=== PATIENT | male | born 1940 | race Caucasian/White ===

== ENCOUNTER 2018-04-24 08:17 | Inpatient (IN) | payer MEDICARE, OTHER ==
[~2018-04-24] VITALS: Ht 182.9 cm; Wt 115.1 kg
[~2018-04-24 08:17] MED LIST: ALDACTONE50 MG PO; CO Q-1050 MG PO; COD LIVER OIL1 CAP PO; CORDARONE200 MG/TAB PO; CRESTOR20 MG PO; CYANOCOBAL1000 MCG/2 IM; ELIQUIS 5MG PO; FLEXERIL 1010 MG/TAB PO; HYZAAR 12.5 MG-1 TAB PO; IRON325 MG PO; LANTUS SOLOS100 U/ML SC; LASIX 20MG TABL20 MG PO; LIPITOR 40MG TA40 MG PO; LIQUID MAGNESI400 MG PO; MULTAQ400 MG PO; NITROSTAT0.4 MG/TAB SL; NOVLOG SC; PROSCAR 5MG5 MG PO; PROZAC 20MG20 MG PO; RESTORIL 1515 MG/CAP PO; TOPROL XL 25MG25 MG PO; TOPROL XL100 MG PO; VITAMIN D31000 I1 PO; XANAX .25M0.25 MG/TA PO; ZOCOR 40MG40 MG PO
[2018-04-24 08:43] VITALS: BP 151/71; PULSE 74; TEMP 98.7
[2018-04-24 09:18] LABS: HEMATOCRIT 37.1 % (42.0-52.0); HEMOGLOBIN 11.6 g/dl (13.5-18.0); MEAN CELL VOLUME 81 fl (80.0-100.0); MEAN CORPUSCULAR HEMOGLOBIN 25 pg (27.0-31.0); MEAN CORPUSCULAR HGB CONC 31 g/dl (33.0-37.0); MEAN PLATELET VOLUME 10.8 fl (7.4-10.4); PLATELET COUNT 193 K/mm3 (130-400); RED BLOOD COUNT 4.57 M/mm3 (4.20-5.60)
[2018-04-24 09:31] LABS: ALBUMIN 3.8 gm/dL (3.5-5.0); BILIRUBIN,TOTAL 0.4 mg/dL (0.0-1.0); CALCIUM 9.1 mg/dL (8.4-10.2); CREATININE, serum 2.45 mg/dL (0.66-1.25); MAGNESIUM 2.3 mg/dL (1.6-2.3); POTASSIUM 4.3 mmol/L (3.4-5.0); TOTAL PROTEIN 6.9 gm/dL (6.4-8.2)
[2018-04-24 10:16] LABS: INR 1.7 (0.8-3.0); PROTHROMBIN TIME 18.8 SECONDS (9.7-12.8)
[2018-04-24 11:06] VITALS: BP 118/72; PULSE 69; TEMP 98.2
[2018-04-24] MEDS ORDERED: LASIX 20MG TABL20 MG PO (12:32)
[2018-04-24] MEDS ORDERED: ALDACTONE 25MG25 M1 PO (12:33)
[2018-04-24] MEDS ORDERED: COLCRYS0.6 MG PO (12:35)
[2018-04-24] MEDS ORDERED: CALCITRIOL PO (12:37)
[2018-04-24] MEDS ORDERED: ATROVENTNS0.03% NS (12:38)
[2018-04-24] MEDS ORDERED: ZYLOPRIM 100MG100 MG PO (12:40)
[2018-04-24 14:57] VITALS: BP 110/66; PULSE 78; TEMP 97.8
[2018-04-24 20:58] VITALS: BP 120/79; PULSE 71; TEMP 98
[2018-04-25 00:12] VITALS: BP 97/54; PULSE 72; TEMP 97.6
[2018-04-25 03:23] VITALS: BP 126/76; PULSE 76; TEMP 98
[2018-04-25 08:02] LABS: INR 1.3 (0.8-3.0); PROTHROMBIN TIME 14.9 SECONDS (9.7-12.8)
[2018-04-25 08:12] VITALS: BP 107/64; PULSE 83; TEMP 98.1
[2018-04-25 08:14] LABS: CALCIUM 9.1 mg/dL (8.4-10.2); CREATININE, serum 2.16 mg/dL (0.66-1.25)
[2018-04-25 12:08] VITALS: BP 118/70; PULSE 76; TEMP 98.2
[2018-04-25 16:33] VITALS: BP 109/61; PULSE 70; TEMP 98.1
[2018-04-25 19:10] VITALS: BP 122/73; PULSE 78; TEMP 97.9
[2018-04-26 00:03] VITALS: BP 118/63; PULSE 70; TEMP 97.8
[2018-04-26 03:25] VITALS: BP 115/72; PULSE 74; TEMP 98.1
[2018-04-26 07:43] LABS: CALCIUM 9.1 mg/dL (8.4-10.2); CREATININE, serum 2.02 mg/dL (0.66-1.25); INR 1.4 (0.8-3.0); POTASSIUM 4.7 mmol/L (3.4-5.0); PROTHROMBIN TIME 15.4 SECONDS (9.7-12.8)
[2018-04-26 08:50] VITALS: BP 102/66; PULSE 70; TEMP 97.9
[2018-04-26 11:02] VITALS: BP 126/74; PULSE 80; TEMP 97.7
[2018-04-26] MEDS ORDERED: BETAPACE 120MG120 MG PO (11:15)
[2018-04-26 13:30] LABS: COLLECTION METHOD CLEAN CATCH
[2018-04-26 13:38] LABS: MUCOUS Present /lpf; PH 5 (5-8); SQUAMOUS EPITHELIAL None Seen /hpf; URINE APPEARANCE Clear; URINE BACTERIA Rare /hpf; URINE BILIRUBIN Negative (NEGATIVE); URINE BLOOD Negative (NEGATIVE); URINE COLOR Yellow; URINE GLUCOSE Negative (NEGATIVE); URINE KETONE Negative (NEGATIVE); URINE LEUKOCYTE ESTERASE Negative (NEGATIVE); URINE NITRATE Negative (NEGATIVE); URINE PROTEIN(semi-quant) 2+ (NEGATIVE); URINE RBC 0-2 /hpf; URINE UROBILINOGEN Negative (NEGATIVE); URINE WBC 0-2 /hpf
[2018-04-26 13:50] LABS: URINE PROTEIN:CREAT RATIO 0.64 (0.00-0.14)
== END 2018-04-26 13:45 | disposition home or self-care (01) | DRG 309 ==
LOC: MEDICAL 08:17
PROVIDERS: Internal Medicine Cardiovascular Disease; Internal Medicine Nephrology
DX: I48.92 Unspecified atrial flutter (principal); N18.4 Chronic kidney disease, stage 4 (severe); N25.81 Secondary hyperparathyroidism of renal origin; I12.9 Hypertensive chronic kidney disease with stage 1 through stage 4 chronic kidney disease, or unspecified chronic kidney disease; I25.10 Atherosclerotic heart disease of native coronary artery without angina pectoris; E11.22 Type 2 diabetes mellitus with diabetic chronic kidney disease; I48.0 Paroxysmal atrial fibrillation; Z95.0 Presence of cardiac pacemaker; Z95.5 Presence of coronary angioplasty implant and graft; Z87.891 Personal history of nicotine dependence
CPT/HCPCS: J1815

== ENCOUNTER 2020-01-29 22:35 | Inpatient (IN) | payer MEDICARE, BC, OTHER ==
[~2020-01-29] VITALS: Ht 182.9 cm; Wt 107.5 kg
[~2020-01-29 22:35] MED LIST changes: +ALDACTONE 25MG25 M1 PO; +ATROVENTNS0.03% NS; +BETAPACE 120MG120 MG PO; +CALCITRIOL PO; +COLCRYS0.6 MG PO; -RESTORIL 1515 MG/CAP PO; +ZYLOPRIM 100MG100 MG PO
--- NOTE | 2020-01-29 23:00 | NUR ---
Direct admit from home to room 318 via wheelchair. Oriented to room and policy. Admission assessment complete. Dr Acosta notified of arrival. Discussed plan of care to include starting IV and medical technician assistant. Denies questions/concerns. IV placed to right [id number] attempts. Tolerated well. Call light in reach. Will monitor.
[2020-01-29] MEDS ORDERED: NITROSTAT0.4 MG/TAB SL (23:05)
[2020-01-29] MEDS ORDERED: CORDARONE200 MG/TAB PO (23:08)
[2020-01-29] MEDS ORDERED: SYNTHROID0.075 MG/T PO (23:10)
[2020-01-29] MEDS ORDERED: ULORIC40 MG PO (23:11)
[2020-01-29] MEDS ORDERED: RESTORIL 1515 MG/CAP PO (23:24)
[2020-01-29 23:26] VITALS: BP 114/51; PULSE 72; TEMP 98.6
[2020-01-29] MEDS ORDERED: ATIVAN 0.50.5 MG/TAB (23:26)
[2020-01-30 04:13] VITALS: BP 91/35; PULSE 78; TEMP 97.9
[2020-01-30 06:35] LABS: MEAN CELL VOLUME 75 fl (80.0-100.0); MEAN CORPUSCULAR HGB CONC 27 g/dl (33.0-37.0); MEAN PLATELET VOLUME 10.8 fl (7.4-10.4); PLATELET COUNT 240 K/mm3 (130-400); REDCELL DISTRIBUTION WIDTH-CV 20.7 % (11.5-14.5)
[2020-01-30 06:42] LABS: INR 2.6 (0.8-3.0); PROTHROMBIN TIME 31.6 SECONDS (9.7-12.8)
[2020-01-30 06:43] LABS: ALBUMIN 3.3 gm/dL (3.5-5.0); CALCIUM 8.4 mg/dL (8.4-10.2); CREATININE, serum 2.83 (0.66-1.25); PHOSPHOROUS 4.5 mg/dL (2.5-4.5); POTASSIUM 3.9 mmol/L (3.4-5.0)
[2020-01-30 06:45] LABS: PARTIAL THROMBOPLASTIN TIME 37.8 SECONDS (26.0-37.0)
[2020-01-30 07:00] LABS: HEMATOCRIT 24.1 % (42.0-52.0); MEAN CORPUSCULAR HEMOGLOBIN 20 pg (27.0-31.0)
[2020-01-30 07:03] LABS: HEMOGLOBIN 6.4 g/dl (13.5-18.0)
--- NOTE | 2020-01-30 07:07 | NUR ---
Dr. Acosta notified of critical lab. No new orders received.
[2020-01-30 07:47] LABS: BAND 2 % (0-10); BASOPHIL 1 % (0-2); HYPOCHROMIA 3+; LYMPHOCYTE 22 % (20.0-51.0); NEUTROPHILS 70 % (42.0-75.2); OVALOCYTES 2+; PLATELET ESTIMATE NORMAL (NORMAL); SCHISTOCYTES 1+
[2020-01-30 07:54] VITALS: BP 106/46; PULSE 70; TEMP 97.6
[2020-01-30 10:36] LABS: IRON,SERUM 189 ug/dL (35-150)
[2020-01-30 10:45] LABS: TOTAL IRON BINDING CAPACITY 388 ug/dL (261-462)
--- NOTE | 2020-01-30 10:54 | NUR ---
Patient alert and oriented, answers questions appropriately. See assessment. Abdomen soft, non tender, non distended. Bowel sounds active x4 quads. +Flatus. Denies noticable blood in stool or urine. States stool is normal color. No c/o at this time.
--- NOTE | 2020-01-30 11:25 | NUR ---
Behavioral Health Director met with patient to discuss discharge planning. Patient lives in [place] with his , Adeline (ph#[phone]) and sees Dr. Salazar for primary care. Patient obtains medications from either [facility] in [place] or has them mailed to him by the [place]. Patient reports independence with ADLS and uses a CPAP at home. Patient does not have home oxygen set up but is currently requiring 2 liters of oxygen. SW will continue to monitor. Patient states his DPOA is his daughter, Pamela Redman. Josiah did not have Pamela's phone number. Patient plans to return home upon discharge. LIANG spoke with Dr. Acosta about ordering PT/OT. SW to continue to follow.
[2020-01-30 11:55] VITALS: BP 112/52; PULSE 71; TEMP 98.4
[2020-01-30 16:15] VITALS: BP 100/43; PULSE 70; TEMP 97.7
[2020-01-30 20:53] VITALS: BP 96/46; PULSE 72; TEMP 98.3
--- NOTE | 2020-01-30 22:00 | NUR ---
PT RESTING IN BED. PT CONTINUES ATTEMPTING TO DRINK BOWEL PREP WITH MUCH COAXING. BM'S ARE LIGHT GREEN WITH THICK FLECKS. CONTINUE TO URGE. O2 2L NC. DYSPNEIC W/ EXERTION. PT DENIES PAIN JUST VERY TIRED.
--- NOTE | 2020-01-30 23:50 | NUR ---
PATIENT CHOOSES TO NOT USE OUR PAP DEVICE FOR TONIGHT.
[2020-01-31] VITALS (19 sets, daily range): BP systolic 104–159; BP diastolic 36–63; PULSE 68–81; TEMP 97.4–98.4
--- NOTE | 2020-01-31 06:32 | NUR ---
BM CLEAR PER PT- PT FLUSHED TOILET.
--- NOTE | 2020-01-31 06:33 | NUR ---
SPOT ACCUCHECK 94 AT THIS TIME.
[2020-01-31 06:38] LABS: BASO % 0.8 % (0.0-2.0); EOS # 0.1 (0.0-0.7); EOS % 1.5 % (0-4.0); GRAN # 3.6 (1.4-6.5); GRAN % 75.2 % (42.2-75.2); LYMPH # 0.6 (1.2-3.4); LYMPH % 12.3 % (20.0-51.0); MEAN CELL VOLUME 75 fl (80.0-100.0); MEAN CORPUSCULAR HGB CONC 27 g/dl (33.0-37.0); MEAN PLATELET VOLUME 10.6 fl (7.4-10.4); MONO # 0.5 (0.1-0.6); PLATELET COUNT 222 K/mm3 (130-400); RED BLOOD COUNT 3.34 M/mm3 (4.20-5.60); REDCELL DISTRIBUTION WIDTH-CV 20.9 % (11.5-14.5)
[2020-01-31 06:40] LABS: ALBUMIN 3.4 gm/dL (3.5-5.0); CALCIUM 8.2 mg/dL (8.4-10.2); CREATININE, serum 2.4 (0.66-1.25); PHOSPHOROUS 4.3 mg/dL (2.5-4.5); POTASSIUM 4.1 mmol/L (3.4-5.0)
[2020-01-31 06:46] LABS: HEMOGLOBIN 6.8 g/dl (13.5-18.0); MEAN CORPUSCULAR HEMOGLOBIN 20 pg (27.0-31.0)
[2020-01-31 07:34] LABS: INR 1.9 (0.8-3.0); PROTHROMBIN TIME 22.1 SECONDS (9.7-12.8)
--- NOTE | 2020-01-31 09:08 | NUR ---
Assessment complete prior to EGD/Colonoscopy this morning. No complaints of pain or discomfort. IV site CD&I, procedure fluids started at 100 mls/hr. Pt was aware of his POC for today. Assessed as he walked from restroom back to bed and his gait was steady. Stated that felt okay this morning. No other needs were expressed at this time. Call light is in reach.
--- NOTE | 2020-01-31 09:44 | NUR ---
Pt has arrived back from EGD/Colonoscopy. no source of bleeding was found per op report. Stomach was irritated and inflamed. An H pylori test was done, results not back yet. No issues in abdomen other than diverticulosis but is not the cause of the bleeding. Blood in the stool may be from hemmoroids rather than the GI.
[2020-01-31] MEDS ORDERED: PROTONIX40 MG/Pack PO (11:40)
[2020-01-31] MEDS ORDERED: CORDARONE200 MG/TAB PO (11:43)
--- NOTE | 2020-01-31 12:30 | NUR ---
Blood transfusion began at this time. Pt is aware of process and is stable at this time.
--- NOTE | 2020-01-31 13:39 | NUR ---
PT ON 3 LPM @ REST IN BED. O2 TURNED OFF. SPO2 DROPPED WITHIN 2 MINUTES TO 85%. O2 BACK ON @ 3 LPM NC RETURNING PT TO SPO2 OF 94%. MUCKER OPERATOR NOTIFIED.
--- NOTE | 2020-01-31 14:22 | NUR ---
Pt is still stable. Tolerating transfusion very well. He is aware of his ischarge post infusion at this time.
--- NOTE | 2020-01-31 14:25 | NUR ---
infusion rate is currently runnning at 100 ml/hr. not to go higher at this time due to IV. It was leaking slightly with fluids but has not been leaking during infusion. Pt tolerating well.
--- NOTE | 2020-01-31 16:01 | NUR ---
Awnings Mechanic was notified that patient to discharge today. Patient still is requiring 3 liters of oxygen. Exercise Ox ordered and patient qualifies. LIANG met with patient who would like to use [facility] in [place]. SW faxed oxygen order, Facesheet, H&P, progress note, and RT assessment to [facility]. LIANG contacted patient's , Adeline who will pickle sorter oxygen tank from [facility] then come pickle sorter patient. No additional needs at this time.
--- NOTE | 2020-01-31 16:05 | NUR ---
Blood has finished infusing. Pt tolerated well, IV site held well throughout infusion. Pt ambulated to restroom while infusing and walked steady. He denies pain or discomfort. He did complain of some anxiety towards the end, PRN anxiety medication was provided.
--- NOTE | 2020-01-31 17:27 | NUR ---
Pt left the floor at this time. Discharge instructions were discussed, pt denied questions and is aware of his medications.
== END 2020-01-31 17:27 | disposition home or self-care (01) | DRG 378 ==
LOC: MEDICAL 22:35
PROVIDERS: Internal Medicine Gastroenterology; ADMIT Internal Medicine Nephrology
PROC: 0DB78ZX Excision of Stomach, Pylorus, Via Natural or Artificial Opening Endoscopic, Diagnostic (ICD-10-PCS; principal; 2020-01-31 08:00)
PROC: 0DJD8ZZ Inspection of Lower Intestinal Tract, Via Natural or Artificial Opening Endoscopic (ICD-10-PCS; 2020-01-31 08:00)
DX: K29.31 Chronic superficial gastritis with bleeding (principal); N18.4 Chronic kidney disease, stage 4 (severe); I48.92 Unspecified atrial flutter; D62 Acute posthemorrhagic anemia; E66.01 Morbid (severe) obesity due to excess calories; F41.9 Anxiety disorder, unspecified; K57.31 Diverticulosis of large intestine without perforation or abscess with bleeding; G47.33 Obstructive sleep apnea (adult) (pediatric); I12.9 Hypertensive chronic kidney disease with stage 1 through stage 4 chronic kidney disease, or unspecified chronic kidney disease; E11.22 Type 2 diabetes mellitus with diabetic chronic kidney disease; I48.0 Paroxysmal atrial fibrillation; D63.1 Anemia in chronic kidney disease; K64.1 Second degree hemorrhoids; I35.0 Nonrheumatic aortic (valve) stenosis; E78.5 Hyperlipidemia, unspecified; L40.9 Psoriasis, unspecified; E55.9 Vitamin D deficiency, unspecified; I27.20 Pulmonary hypertension, unspecified; G47.00 Insomnia, unspecified; I25.10 Atherosclerotic heart disease of native coronary artery without angina pectoris; Z95.0 Presence of cardiac pacemaker; Z79.4 Long term (current) use of insulin; Z90.3 Acquired absence of stomach [part of]; Z87.891 Personal history of nicotine dependence; Z88.8 Allergy status to other drugs, medicaments and biological substances
CPT/HCPCS: J1815; J2704; J2916; J3430; P9016

== ENCOUNTER 2020-04-02 08:39 | Outpatient (CLI) | payer MEDICARE, BC, OTHER ==
[~2020-04-02] VITALS: Ht 182.9 cm; Wt 108.0 kg
[2020-04-02] VITALS (8 sets, daily range): BP systolic 109–127; BP diastolic 61–76; PULSE 69–80; TEMP 98.1
[~2020-04-02 08:39] MED LIST changes: +ATIVAN 0.50.5 MG/TAB; +PROTONIX40 MG/Pack PO; +RESTORIL 1515 MG/CAP PO; +SYNTHROID0.075 MG/T PO; +ULORIC40 MG PO
[2020-04-02] MEDS ORDERED: PACERONE400 MG PO (09:24)
[2020-04-02] MEDS ORDERED: PROTONIX 40MG T40 MG PO (09:25)
[2020-04-02] MEDS ORDERED: LASIX 40MG TABL40 MG PO (09:25)
[2020-04-02 09:26] LABS: HEMATOCRIT 39.1 % (42.0-52.0); HEMOGLOBIN 11.3 g/dl (13.5-18.0); MEAN CELL VOLUME 85 fl (80.0-100.0); MEAN CORPUSCULAR HEMOGLOBIN 25 pg (27.0-31.0); MEAN CORPUSCULAR HGB CONC 29 g/dl (33.0-37.0); MEAN PLATELET VOLUME 10.1 fl (7.4-10.4); PLATELET COUNT 215 K/mm3 (130-400); RED BLOOD COUNT 4.61 M/mm3 (4.20-5.60); REDCELL DISTRIBUTION WIDTH-CV 25.1 % (11.5-14.5)
[2020-04-02] MEDS ORDERED: CALCITRIOL PO (09:27)
[2020-04-02] MEDS ORDERED: ATROVENTNS0.03% NS (09:31)
[2020-04-02] MEDS ORDERED: ASPIRIN E.C. 8181 MG PO (09:35)
[2020-04-02] MEDS ORDERED: ZAROXOLYN 2.52.5 MG PO (09:36)
[2020-04-02 09:39] LABS: CALCIUM 8.9 mg/dL (8.4-10.2); CREATININE, serum 2.44 (0.66-1.25); POTASSIUM 3.9 mmol/L (3.4-5.0)
[2020-04-02 09:41] LABS: INR 1.2 (0.8-3.0); PROTHROMBIN TIME 13.7 SECONDS (9.7-12.8)
--- NOTE | 2020-04-02 11:33 | NUR ---
GABI COMPLETED, REPORT FROM DENVER ORLANDO. PT RESTING AWAKE AND ALERT ON STRETCHER, BACK TO BEDSIDE. WCTM.
--- NOTE | 2020-04-02 11:34 | NUR ---
PT DOING WELL, HE HAS BEEN ABLE TO DRINK WITH NO PROBLEM. PT SATTING MID 90'S ON 2L/NC, PT ENCOURAGED TO WEAR HOME O2 DURING THE DAY PRESCRIBED. REPORTS HAS PORTABLE O2 IN THE CAR FOR PT'S RIDE HOME. PT'S DISCHARGE IS PENDING. DR. SANTIAGO STATED PLANNED TO SPEAK WITH PT AND BEFORE THEIR DEPARTURE.
--- NOTE | 2020-04-02 13:00 | NUR ---
Pt is ready for departure. he has been up and ambulatory in room with steady gait per his baseline. iv dc'd with cath intact, dressing applied. dc and f/u instructions were reviewed. no questions expressed. pt escorted to exit via wheelchair.
== END 2020-04-02 15:15 | disposition home or self-care (01) ==
LOC: COL.RAD 08:39
PROVIDERS: Internal Medicine Cardiovascular Disease
DX: I35.8 Other nonrheumatic aortic valve disorders (principal); Z95.0 Presence of cardiac pacemaker
CPT/HCPCS: J2704; J7030

== ENCOUNTER 2020-11-04 08:45 | Outpatient (CLI) | payer MEDICARE, OTHER, BC ==
[~2020-11-04] VITALS: Ht 182.9 cm; Wt 90.8 kg
[2020-11-04] VITALS (9 sets, daily range): BP systolic 93–112; BP diastolic 53–74; PULSE 69–71; TEMP 97.9
[~2020-11-04 08:45] MED LIST changes: +ASPIRIN E.C. 8181 MG PO; +LASIX 40MG TABL40 MG PO; +PACERONE400 MG PO; +PROTONIX 40MG T40 MG PO; +ZAROXOLYN 2.52.5 MG PO
[2020-11-04 10:44] LABS: CALCIUM 8.5 mg/dL (8.4-10.2); CREATININE, serum 3.04 (0.66-1.25); POTASSIUM 4.3 mmol/L (3.4-5.0)
[2020-11-04 10:46] LABS: MEAN CELL VOLUME 90 fl (80.0-100.0); MEAN CORPUSCULAR HEMOGLOBIN 28 pg (27.0-31.0); MEAN CORPUSCULAR HGB CONC 31 g/dl (33.0-37.0); MEAN PLATELET VOLUME 10.4 fl (7.4-10.4); PLATELET COUNT 220 K/mm3 (130-400); REDCELL DISTRIBUTION WIDTH-CV 15.6 % (11.5-14.5)
[2020-11-04 10:47] LABS: INR 1.2 (0.8-3.0); PROTHROMBIN TIME 13.5 SECONDS (9.7-12.8)
[2020-11-04 10:54] LABS: HEMATOCRIT 32.5 % (42.0-52.0)
--- NOTE | 2020-11-04 11:25 | NUR ---
BS REPORT RECEIVED FROM DEBBIE ORLANDO. PT IS DROWSY, BUT AWAKE AND ALERT X 3. NO COMPLAINTS AT THIS TIME. PT IS AWARE OF POC. AV PACED ON MONITOR, HIGH 90'S ON ROOM AIR.
--- NOTE | 2020-11-04 13:30 | NUR ---
Pt is ready for departure. He did well during his recovery, drinking water with no problem. I reviewed dc, fu instructions with pt. He verbalized understanding. Dr. Mallory did stop back by to see pt prior to his discharge, pt reported his questions had been answered. IV was dc'd with cath intact, dressing applied. Pt has been ambulatory in his room with steady gait with his walker. Pt is escorted to exit via wheelchair.
== END 2020-11-04 13:30 | disposition home or self-care (01) ==
LOC: COL.RAD 08:45
PROVIDERS: Internal Medicine Cardiovascular Disease
DX: Z01.810 Encounter for preprocedural cardiovascular examination (principal); I48.91 Unspecified atrial fibrillation; I08.2 Rheumatic disorders of both aortic and tricuspid valves
CPT/HCPCS: J2704

== ENCOUNTER 2020-12-23 06:17 | Outpatient (CLI) | payer MEDICARE, OTHER, BC ==
[2020-12-23] VITALS (16 sets, daily range): BP systolic 101–115; BP diastolic 42–66; PULSE 62–79; TEMP 98–98.5
[~2020-12-23] VITALS: Ht 182.9 cm; Wt 88.4 kg
[~2020-12-23 06:17] MED LIST changes: -SYNTHROID0.075 MG/T PO; +SYNTHROID0.088 MG/T PO
[2020-12-23 07:54] LABS: MEAN CELL VOLUME 90 fl (80.0-100.0); MEAN CORPUSCULAR HGB CONC 30 g/dl (33.0-37.0); MEAN PLATELET VOLUME 9.8 fl (7.4-10.4); PLATELET COUNT 212 K/mm3 (130-400); RED BLOOD COUNT 2.56 M/mm3 (4.20-5.60); REDCELL DISTRIBUTION WIDTH-CV 17.2 % (11.5-14.5)
[2020-12-23 07:57] LABS: MEAN CORPUSCULAR HEMOGLOBIN 27 pg (27.0-31.0)
[2020-12-23 07:58] LABS: HEMOGLOBIN 6.9 g/dl (13.5-18.0)
[2020-12-23 08:03] LABS: CALCIUM 8.2 mg/dL (8.4-10.2); CREATININE, serum 2.72 (0.66-1.25); POTASSIUM 3.6 mmol/L (3.4-5.0)
[2020-12-23 08:04] LABS: INR 3.1 (0.8-3.0); PROTHROMBIN TIME 35.2 SECONDS (9.7-12.8)
--- NOTE | 2020-12-23 14:38 | NUR ---
LAB TO BS FOR REPEAT H&H
[2020-12-23 14:57] LABS: HEMATOCRIT 25.2 % (42.0-52.0); HEMOGLOBIN 7.6 g/dl (13.5-18.0)
--- NOTE | 2020-12-23 17:15 | NUR ---
2 unit of blood complete. INT discontinued intact and discharge instructions given.
--- NOTE | 2020-12-23 17:30 | NUR ---
Transferred to private car by sofie
== END 2020-12-23 17:30 | disposition home or self-care (01) ==
LOC: COL.RAD 06:17
PROVIDERS: Internal Medicine Cardiovascular Disease
DX: Z95.818 Presence of other cardiac implants and grafts (principal); Z88.8 Allergy status to other drugs, medicaments and biological substances; Z79.82 Long term (current) use of aspirin; Z79.4 Long term (current) use of insulin; Z79.899 Other long term (current) drug therapy; Z79.890 Hormone replacement therapy
CPT/HCPCS: J1940; J2704; J7050; P9016

== ENCOUNTER 2021-03-24 07:37 | Inpatient (IN) | payer MEDICARE, OTHER, BC ==
[~2021-03-24] VITALS: Ht 182.9 cm; Wt 76.7 kg
[2021-03-24] VITALS (16 sets, daily range): BP systolic 87–105; BP diastolic 47–56; PULSE 65–72; TEMP 97.4–98.6
[2021-03-24] MEDS ORDERED: ATROVENTNS0.03% NS (08:08)
[2021-03-24] MEDS ORDERED: VENOFER IV (08:25)
[2021-03-24 09:18] LABS: INR 1.7 (0.8-3.0); PROTHROMBIN TIME 18.9 SECONDS (9.7-12.8)
[2021-03-24 09:21] LABS: BILIRUBIN,TOTAL 0.3 mg/dL (0.0-1.0); CALCIUM 8.1 mg/dL (8.4-10.2); CREATININE, serum 5.17 (0.66-1.25); POTASSIUM 3.1 mmol/L (3.4-5.0); TOTAL PROTEIN 6.3 gm/dL (6.4-8.2)
--- NOTE | 2021-03-24 10:30 | NUR ---
Completed patients medication rec, admission assessments. His checked his glucose and it was 84 but the lab draw is showing 49. Patient is asymptomatic. Spoke with Kim Hammond about the patients glucose. She and Dr Acosta were trying to decide on what rate and what fluid they wanted for his glucose. Patient will be going for dialysis catheter placement at about 1300. Patient is alert and oriented and will sign his consent for the procedure. Dr Bryant will speak with patient about the surgery. Patients and daughter are at bedside. Attempted to start and IV but was not able to get it, another nurse is trying and when done will given medication for his glucose. No other changes at this time. Call light within reach.
--- NOTE | 2021-03-24 10:46 | NUR ---
Initial visit; Patient and family thanked Sports Physiologist for offering encouragement, God's blessings and to keep Omar in her prayers. Sports Physiologist will continue to look in on patient.
[2021-03-24 11:15] LABS: BASO % 0.5 % (0.0-2.0); GRAN # 3.2 (1.4-6.5); GRAN % 81.9 % (42.2-75.2); LYMPH # 0.3 (1.2-3.4); LYMPH % 8.8 % (20.0-51.0); MEAN CELL VOLUME 85 fl (80.0-100.0); MEAN CORPUSCULAR HGB CONC 31 g/dl (33.0-37.0); MEAN PLATELET VOLUME 9.8 fl (7.4-10.4); MONO # 0.3 (0.1-0.6); MONO % 7.3 % (1.7-9.3); PLATELET COUNT 252 K/mm3 (130-400); RED BLOOD COUNT 2.65 M/mm3 (4.20-5.60); REDCELL DISTRIBUTION WIDTH-CV 16.2 % (11.5-14.5)
[2021-03-24 11:25] LABS: HEMATOCRIT 22.4 % (42.0-52.0); HEMOGLOBIN 6.9 g/dl (13.5-18.0); MEAN CORPUSCULAR HEMOGLOBIN 26 pg (27.0-31.0)
--- NOTE | 2021-03-24 12:30 | NUR ---
Patient is going down for his procedure. Consent signed and on the chart. His las glucose check was 94 before going off the floor. No other changes at this time.
--- NOTE | 2021-03-24 12:56 | NUR ---
Follow-up visit; Patient out of room, Rn Research listened to family concerns and took them to the [facility].
--- NOTE | 2021-03-24 14:45 | NUR ---
Was attempting to move patients IV to left arm. Dr Acosta asked that the restricted extremity be switched from the left arm to the right arm due to the patients pacemaker being on the left side. Attempted to poke patient and he has some pain with the intitial poke of the IV. The screamed to stop and ran to the hallway to ask for a training project manager and a different nurse. Nicole ORLANDO will be resuming care for this patient at this time.
--- NOTE | 2021-03-24 16:17 | NUR ---
Report received, care of patient assumed. Assessment compelted, pt is alert and oriented with moments of confusion, family at bedside. Breathing even and unlabored, no signs of distress. PRBC initiated at 1547 vitals documented, remained with patient for first 15 min. No s/s of adverse reactions. Vitals stable. PT resting comfortably in bed wiht bed alarm set. PT education provided on s/s of transfusion reaction, pt verbalized understanding and stated he would call if symptoms arose.
--- NOTE | 2021-03-24 16:21 | NUR ---
Skirt Maker met with patient to discuss discharge planning. Patient lives in [place] with his , Adeline (ph#[phone]) and advised his daughter, Pamela (ph#[phone]) lives in [place]. Patient sees Dr. Salazar for primary care and obtains medications from [facility] in [place] with no difficulties. Patient advised he utilizes a walker for ambulation and is normally independent with ADLS. Patient to be started on dialysis here in the hospital and advised he will be set up with outpatient dialysis in [place] upon discharge. Patient states he does have some concerns with transportation to dialysis as his struggles to drive after dark. SW to follow up on patient's chair time. Patient states he plans to return home upon discharge. PT/OT have been ordered and SW will follow up on recommendations. Discharge Plan: Home, pending PT/OT recommendations
--- NOTE | 2021-03-24 18:25 | NUR ---
Blood transfusion #1 completed at this time. IV from R arm removed and extremity now restricted. #20 difusex placed in LAC without incident. Pt is asymptomatic of transfusion reaction and tolerated well. Report given to nightshift, pending second unit of blood. PT assisted to ambulate to bathroom, able to do so with assistance. Pt back to bed at this time. Bed alarm set, call sofia in reach, bed in low position.
[2021-03-24 22:20] LABS: HEPATITIS B SURFACE ANTIBODY <2.0 (()); HEPATITIS B SURFACE ANTIGEN Negative (Negative); HEPATITIS C VIRUS ANTIBODY Negative (Negative)
[2021-03-25 04:38] VITALS: BP 113/46; PULSE 73; TEMP 97.8
[2021-03-25 06:52] LABS: BASO % 0.4 % (0.0-2.0); EOS % 0.4 % (0-4.0); GRAN # 4.1 (1.4-6.5); LYMPH # 0.4 (1.2-3.4); LYMPH % 7.4 % (20.0-51.0); MEAN CELL VOLUME 85 fl (80.0-100.0); MEAN CORPUSCULAR HGB CONC 31 g/dl (33.0-37.0); MEAN PLATELET VOLUME 9.8 fl (7.4-10.4); MONO # 0.4 (0.1-0.6); MONO % 7.4 % (1.7-9.3); PLATELET COUNT 229 K/mm3 (130-400); RED BLOOD COUNT 3.09 M/mm3 (4.20-5.60); REDCELL DISTRIBUTION WIDTH-CV 15.9 % (11.5-14.5)
[2021-03-25 06:56] LABS: HEMATOCRIT 26.4 % (42.0-52.0); HEMOGLOBIN 8.3 g/dl (13.5-18.0); MEAN CORPUSCULAR HEMOGLOBIN 27 pg (27.0-31.0)
[2021-03-25 07:42] VITALS: BP 104/57; PULSE 87; TEMP 97.3
[2021-03-25 08:24] LABS: ALBUMIN 2.7 gm/dL (3.5-5.0); CALCIUM 7.6 mg/dL (8.4-10.2); CREATININE, serum 4.96 (0.66-1.25); PHOSPHOROUS 5.1 mg/dL (2.5-4.5); POTASSIUM 3.1 mmol/L (3.4-5.0)
[2021-03-25 11:11] VITALS: BP 108/53; PULSE 72; TEMP 97.4
--- NOTE | 2021-03-25 11:38 | NUR ---
PT RETURNED FROM DIALYSIS, VERY HUNGRY. ORDERED FOOD FOR THE PATIENT WHO IS SITTING IN THE RECLINER AT BEDSIDE. FAMILY VISITOR IS NOW IN THE ROOM. NO OTHER CONCERNS AT THIS TIME. WILL CONTINUE TO MONITOR.
--- NOTE | 2021-03-25 12:28 | NUR ---
Follow up with Prayer card along with Automatic Vulcanizing Lead Operator's information regarding the availability of spiritual care.
--- NOTE | 2021-03-25 13:05 | NUR ---
PATIENT TOLERATED HIS 1ST HD TX WITH 250 ML FLUID REMOVAL TODAY. NEXT PLANNED HD TX TOMORROW, Monday03/26/21 @ 0800.
--- NOTE | 2021-03-25 14:21 | NUR ---
Skip Hoist Operator met with patient and his , "Anna" to discuss discharge planning. SW reviewed PT recommendation for Home Health and patient is agreeable to this. LIANG presented Medicare.gov list of agencies that serve [place] and patient selected [facility]. LIANG followed up on transportation to dialysis. Anna advised she plans to drive patient to dialysis and is also working with [facility] to see if there are other patients they could carpool with to dialysis if she ever does not feel well enough to drive. LIANG contacted Jaja at [facility] and faxed referral. Jaja advised patient is currently receiving services from them. Discharge Plan: Home with [facility].
[2021-03-25 15:52] VITALS: BP 100/46; PULSE 75; TEMP 98.6
[2021-03-25 22:03] VITALS: BP 101/56; PULSE 101; TEMP 97.8
[2021-03-26 00:31] VITALS: BP 97/60; PULSE 83; TEMP 97.5
[2021-03-26 03:45] VITALS: BP 98/60; PULSE 73; TEMP 97.9
[2021-03-26 06:29] LABS: ALBUMIN 2.8 gm/dL (3.5-5.0); BASO % 0.7 % (0.0-2.0); CREATININE, serum 3.95 (0.66-1.25); EOS % 0.9 % (0-4.0); GRAN # 3.5 (1.4-6.5); GRAN % 76.9 % (42.2-75.2); LYMPH # 0.5 (1.2-3.4); LYMPH % 11.3 % (20.0-51.0); MEAN CELL VOLUME 86 fl (80.0-100.0); MEAN CORPUSCULAR HGB CONC 31 g/dl (33.0-37.0); MEAN PLATELET VOLUME 10.1 fl (7.4-10.4); MONO # 0.5 (0.1-0.6); PHOSPHOROUS 4.4 mg/dL (2.5-4.5); PLATELET COUNT 221 K/mm3 (130-400); POTASSIUM 3.4 mmol/L (3.4-5.0); RED BLOOD COUNT 3.12 M/mm3 (4.20-5.60); REDCELL DISTRIBUTION WIDTH-CV 16.5 % (11.5-14.5)
[2021-03-26 06:40] LABS: HEMATOCRIT 26.8 % (42.0-52.0); HEMOGLOBIN 8.4 g/dl (13.5-18.0); MEAN CORPUSCULAR HEMOGLOBIN 27 pg (27.0-31.0)
[2021-03-26 07:51] VITALS: BP 102/50; PULSE 87; TEMP 97.7
[2021-03-26] MEDS ORDERED: CORDARONE200 MG/TAB PO (13:05)
[2021-03-26] MEDS ORDERED: LASIX 40MG TABL40 MG PO (13:07)
[2021-03-26] MEDS ORDERED: FOLIC ACID 11 MG/TA1 PO (13:08)
[2021-03-26] MEDS ORDERED: B-121000 MCG PO (13:08)
[2021-03-26 13:29] VITALS: BP 86/50; PULSE 72; TEMP 97.6
--- NOTE | 2021-03-26 13:37 | NUR ---
Warehouse Specialist collaborated with JEREIM Vargas who advised patient will discharge home today. SW contacted Kain at [facility] and faxed discharge orders.
== END 2021-03-26 15:03 | disposition home health service (06) | DRG 673 ==
LOC: MEDICAL 07:37
PROVIDERS: Surgery; ADMIT Internal Medicine Nephrology
PROC: 02H633Z Insertion of Infusion Device into Right Atrium, Percutaneous Approach (ICD-10-PCS; 2021-03-24)
PROC: 5A1D70Z Performance of Urinary Filtration, Intermittent, Less than 6 Hours Per Day (ICD-10-PCS; 2021-03-24)
PROC: 0JH63XZ Insertion of Tunneled Vascular Access Device into Chest Subcutaneous Tissue and Fascia, Percutaneous Approach (ICD-10-PCS; principal; 2021-03-24 13:00)
DX: I12.0 Hypertensive chronic kidney disease with stage 5 chronic kidney disease or end stage renal disease (principal); N18.6 End stage renal disease; E43 Unspecified severe protein-calorie malnutrition; F41.9 Anxiety disorder, unspecified; I48.91 Unspecified atrial fibrillation; I25.10 Atherosclerotic heart disease of native coronary artery without angina pectoris; E11.22 Type 2 diabetes mellitus with diabetic chronic kidney disease; E78.5 Hyperlipidemia, unspecified; G47.30 Sleep apnea, unspecified; D63.1 Anemia in chronic kidney disease; E11.649 Type 2 diabetes mellitus with hypoglycemia without coma; I27.20 Pulmonary hypertension, unspecified; Z79.82 Long term (current) use of aspirin; Z79.4 Long term (current) use of insulin; Z87.891 Personal history of nicotine dependence; Z68.23 Body mass index [BMI] 23.0-23.9, adult
CPT/HCPCS: J1644; J1756; J2704; J7030; P9016; Q5105

== ENCOUNTER 2021-05-18 10:23 | Day surgery (SDC) | payer MEDICARE, BC ==
[2021-05-18] VITALS (11 sets, daily range): BP systolic 98–113; BP diastolic 48–61; PULSE 70–99; TEMP 97.6–97.7
[~2021-05-18] VITALS: Ht 182.9 cm; Wt 79.6 kg
[~2021-05-18 10:23] MED LIST changes: +B-121000 MCG PO; +FOLIC ACID 11 MG/TA1 PO; +VENOFER IV
[2021-05-18 11:56] LABS: CALCIUM 8.4 mg/dL (8.4-10.2); CREATININE, serum 2.02 (0.66-1.25); POTASSIUM 4.1 mmol/L (3.4-5.0)
[2021-05-18] MEDS ORDERED: PROAMATINE10 MG PO (11:56)
--- NOTE | 2021-05-18 15:56 | NUR ---
Pt. admitted to room 358 status post new dialysis fistula to R upper arm. Pt. alert and able to answer questions. Pt. denies pain, reports mild nausea. Pt. oriented to room, significant other at bedside. Fistula site c/d/i. Frequent vital signs cycling through on vital sign machine. Pt. denies needs at this time, awaiting new orders from physician to see if pt. can have something to eat/ drink.
--- NOTE | 2021-05-18 16:01 | NUR ---
Home medications and allergies reviewed with patient, pt. reports all home meds and allergies are up to date and accurate.
--- NOTE | 2021-05-18 17:26 | NUR ---
Dr. Acosta notified of consult, he is aware, he will see patient soon. Pt. doing well, ordered dinner. AV fistula +thrill. +pp. R side of hand arm cooler than left side, strong pulses present. Pt. reports sensation and denies pain. Plan for pt. to get nausea medication, apple juice, and dinner.
--- NOTE | 2021-05-18 19:27 | NUR ---
Bedside shift report complete. Pt. reports when his sugar is around 124 he does not normally give himself a full dose of five units, he normally gives himself three units. Oncoming DARION Colby notified, she reports she will give pt. his pt. three units so his blood sugar does not go too low. Pt. aware of plan of care. Call light in reach.
[2021-05-19 00:28] VITALS: BP 116/64; PULSE 73; TEMP 97.6
[2021-05-19 03:40] VITALS: BP 115/60; PULSE 77; TEMP 97.5
--- NOTE | 2021-05-19 06:30 | NUR ---
PT HAD UNEVENTFUL NIGHT LAST NIGHT, LUIS VERA PULSE STRONG, BRUIT AND THRILL AUSCULATED, R CHEST AV DRESSED C/D/I. VSS, PT EXPRESSES NO ADDITIONAL NEEDS AT THIS TIME. CALL LIGHT WITHIN REACH.
[2021-05-19 08:18] VITALS: BP 107/58; PULSE 69; TEMP 97.5
--- NOTE | 2021-05-19 09:21 | NUR ---
Patient resting in bed at this time. Only complaint was that breakfast was "horrible", though he did eat 100% of it. Patient asked when he would dialyze, this RN told him she would let him know as soon as a time is established. Patient received all medications except for his insulin. Patient was due for 5units according to the MAR. Patient's BS was 137 which would not require sliding scale insulin, but patient is not on sliding scale. Patient refused his insulin stating, "5units will tank me". This RN will reassess the need for insulin closer to lunch time. Assessment was completed.
--- NOTE | 2021-05-19 09:24 | NUR ---
Initial visit; Patient thanked Viner Operator for looking in on him, offering encouragement and prayer. Patient and Viner Operator enjoyed a good visit.
--- NOTE | 2021-05-19 09:44 | NUR ---
vineyard worker met with pt to discuss discharge plan. Patient lives in [place] with his Adeline ([phone]). Patient also has a daughter (Pamela [phone]) who lives in [place]. Patient reports that he is independent on all activities of daily living. Reports he usually doen't use any medical equipment to get around, however his has been giving him sponge baths and he has been using a walker around the house for stability. Patient is currently on oxygen in room, but reports he has not used oxygen in the past. Reports he is trying to do more things around the house like cooking to keep his strength. Patient's PCP is Dr. Salazar and [facility] [place] [facility]. Patient reports he does have a DPOA-HC established and that his daughter has a copy of it. Patient plans to discharge home. Patient reports he does have concerns due to him getting bills in the mail from the hospital. vineyard worker contacted Brando in admission to notify him of the above. Brando plans to look into this. * Discharge plan:Home*
--- NOTE | 2021-05-19 13:17 | NUR ---
Patient tolerated HD tx with 1L fluid removal today. Next planned dialysis tx @ [facility] in [place].
--- NOTE | 2021-05-19 17:09 | NUR ---
Patient escorted out by PCT. Had an uneventful day and only c/o pain once. PRN norco was given before the patient discharged.
== END 2021-05-19 14:33 | disposition home or self-care (01) ==
LOC: SDCO 10:23 → MEDICAL 17:24 → SDCO 05-19 14:33
PROVIDERS: Surgery
DX: I12.0 Hypertensive chronic kidney disease with stage 5 chronic kidney disease or end stage renal disease (principal); E11.22 Type 2 diabetes mellitus with diabetic chronic kidney disease; E11.21 Type 2 diabetes mellitus with diabetic nephropathy; N18.6 End stage renal disease; D50.9 Iron deficiency anemia, unspecified; I25.10 Atherosclerotic heart disease of native coronary artery without angina pectoris; I48.0 Paroxysmal atrial fibrillation; R09.82 Postnasal drip; E78.5 Hyperlipidemia, unspecified; E55.9 Vitamin D deficiency, unspecified; I27.20 Pulmonary hypertension, unspecified; Z95.2 Presence of prosthetic heart valve; Z95.5 Presence of coronary angioplasty implant and graft; Z95.0 Presence of cardiac pacemaker; Z99.2 Dependence on renal dialysis; Z79.4 Long term (current) use of insulin; Z95.818 Presence of other cardiac implants and grafts; Z80.9 Family history of malignant neoplasm, unspecified; Z80.42 Family history of malignant neoplasm of prostate; Z80.0 Family history of malignant neoplasm of digestive organs; Z79.82 Long term (current) use of aspirin; Z79.899 Other long term (current) drug therapy; Z87.891 Personal history of nicotine dependence
CPT/HCPCS: OP; C1768; J0690; J1100; J1644; J1756; J1815; J2405; J2704; J3010; J7030; Q5106

== ENCOUNTER 2021-10-05 06:20 | Outpatient (CLI) | payer MEDICARE, OTHER, BC ==
[2021-10-05] VITALS (8 sets, daily range): BP systolic 99–118; BP diastolic 52–71; PULSE 69–71; TEMP 97.6
[~2021-10-05] VITALS: Ht 183 cm; Wt 73.5 kg
[~2021-10-05 06:20] MED LIST changes: +PROAMATINE10 MG PO
[2021-10-05] MEDS ORDERED: PROTONIX 40MG T40 MG PO (07:50)
[2021-10-05] MEDS ORDERED: FOLIC ACID 11 MG/TA1 PO (07:51)
[2021-10-05] MEDS ORDERED: LASIX 40MG TABL40 MG PO (07:52)
[2021-10-05] MEDS ORDERED: CORDARONE200 MG/TAB PO (07:53)
[2021-10-05] MEDS ORDERED: PRILOSEC 20MG20 MG PO (07:54)
[2021-10-05] MEDS ORDERED: VITAMIN B COMPL1 SGL PO (07:55)
--- NOTE | 2021-10-05 08:37 | NUR ---
SEE MERGE FOR ALL MEDICATION ADMINISTRATION TIMES/DOSAGES AND INTRA/POST SEDATION ASSESSMENT.
--- NOTE | 2021-10-05 09:50 | NUR ---
Pt returned from procedure,report from Charli georges.
--- NOTE | 2021-10-05 11:40 | NUR ---
Dr Leslie in to see pt.Ok to dc home per Dr Leslie.Discharge instructions given to pt.Pt verbalizes understanding.INT removed,catheter tip intact.Pt escorted out via wheelchair by this nurse.
== END 2021-10-05 12:45 ==
LOC: COL.CAR 06:20
DX: T82.868A Thrombosis due to vascular prosthetic devices, implants and grafts, initial encounter (principal); Z90.49 Acquired absence of other specified parts of digestive tract
CPT/HCPCS: C1894; J1644; J2250; J3010; Q9967

== ENCOUNTER → 2021-11-09 | Outpatient (CLI) | payer MEDICARE, OTHER, BC ==
[~2021-11-09] MED LIST changes: +PRILOSEC 20MG20 MG PO; +VITAMIN B COMPL1 SGL PO
== END ==
LOC: COL.VAS 13:30
DX: N18.6 End stage renal disease (principal); Z99.2 Dependence on renal dialysis

== ENCOUNTER → 2021-12-30 | Outpatient (CLI) | payer MEDICARE, OTHER, BC | LOC: COL.VAS 13:44 | DX: Z01.818 Encounter for other preprocedural examination (principal); I08.8 Other rheumatic multiple valve diseases; I31.3 Pericardial effusion (noninflammatory); N18.6 End stage renal disease ==

== ENCOUNTER → 2022-02-10 | Outpatient (CLI) | payer MEDICARE, OTHER, BC | LOC: COL.VAS 02-08 09:00 | DX: Z01.818 Encounter for other preprocedural examination (principal); N18.6 End stage renal disease ==

== ENCOUNTER 2022-06-28 07:49 | Day surgery (SDC) | payer MEDICARE, OTHER, BC ==
[~2022-06-28] VITALS: Ht 183 cm; Wt 64.1 kg
[2022-06-28] VITALS (16 sets, daily range): BP systolic 76–112; BP diastolic 47–65; PULSE 67–76; TEMP 98
[~2022-06-28 07:49] MED LIST changes: -PRILOSEC 20MG20 MG PO
[2022-06-28] MEDS ORDERED: PROZAC 10MG10 MG PO (08:35)
[2022-06-28] MEDS ORDERED: [UNRECOGNIZED DRUG - OTHER] PO (08:37)
[2022-06-28 08:40] LABS: BASO % 0.9 % (0.0-2.0); EOS # 0.1 K/mm3 (0.0-0.7); EOS % 1.7 % (0.0-4.0); GRAN # 3.5 K/mm3 (1.4-6.5); GRAN % 76.3 % (42.2-75.2); HEMOGLOBIN 11.5 g/dl (13.5-18.0); LYMPH # 0.6 K/mm3 (1.2-3.4); LYMPH % 13.4 % (20.0-51.0); MEAN CELL VOLUME 99 fl (80.0-100.0); MEAN CORPUSCULAR HEMOGLOBIN 31 pg (27-31); MEAN CORPUSCULAR HGB CONC 31 g/dl (33.0-37.0); MEAN PLATELET VOLUME 9.8 fl (7.4-10.4); MONO # 0.3 K/mm3 (0.1-0.6); MONO % 7.3 % (1.7-9.3); PLATELET COUNT 150 K/mm3 (130-400); RED BLOOD COUNT 3.73 M/mm3 (4.20-5.60); REDCELL DISTRIBUTION WIDTH-CV 13.2 % (11.5-14.5)
[2022-06-28 08:43] LABS: INR 1.2 (0.8-3.0); PROTHROMBIN TIME 13.8 SECONDS (9.7-12.8)
[2022-06-28 08:44] LABS: HEMATOCRIT 36.8 % (42.0-52.0)
[2022-06-28] MEDS ORDERED: PHOS LO PO (08:49)
[2022-06-28] MEDS ORDERED: MULTI VITAMINS1 TAB PO (08:50)
[2022-06-28] MEDS ORDERED: SODIUM BICARBO650 MG PO (08:50)
[2022-06-28] MEDS ORDERED: ROXICODONE 55 MG/TAB PO (08:51)
[2022-06-28 08:57] LABS: CALCIUM 8.5 mg/dL (8.4-10.2); CREATININE, serum 4.61 mg/dL (0.72-1.25); POTASSIUM 4.2 mmol/L (3.5-4.5)
--- NOTE | 2022-06-28 09:28 | NUR ---
Pt to procedure.report to Charli travis
--- NOTE | 2022-06-28 09:40 | NUR ---
SEE MERGE FOR VITAL SIGNS, ASSESSMENTS, INTERVENTIONS AND MEDICATIONS GIVEN.
--- NOTE | 2022-06-28 11:20 | NUR ---
Pt had observed bleeding at site.Dressing changed by Bushra Cisneros Lab Nurse.
== END 2022-06-28 16:31 ==
LOC: COL.CAR 07:49
PROVIDERS: Internal Medicine Cardiovascular Disease
DX: Z45.010 Encounter for checking and testing of cardiac pacemaker pulse generator [battery] (principal); I44.2 Atrioventricular block, complete
CPT/HCPCS: C1785; J0690; J2250; J3010; J7050